=== PATIENT | male | born 1985 | race Hispanic/Latino ===

== ENCOUNTER 2020-11-19 15:40 | Emergency (ER) | payer SELFPAY ==
[2020-11-20 01:46] LABS: SARS-CoV-2 PCR by NAA Not Detected (NotDetected)
== END 2020-11-19 16:05 | disposition home or self-care (01) ==
LOC: NAV ERS 15:40
DX: Z20.822 Contact with and (suspected) exposure to COVID-19 (principal)
CPT/HCPCS: 99283; U0003; U0005

== ENCOUNTER 2021-10-20 14:53 | Emergency (ER) | payer SELFPAY | END 2021-10-20 15:35 | disposition home or self-care (01) | LOC: NAV ERS 14:53 | DX: M72.2 Plantar fascial fibromatosis (principal) | CPT/HCPCS: 99283 ==